=== PATIENT | female | born 1950 ===

== ENCOUNTER 2018-06-10 07:48 | Day surgery (SDC) | payer MEDICARE, BC ==
--- NOTE | 2018-06-06 15:18 | Pre-Procedure Note/Attestation ---
Pre-Procedure Note/Attestation Complete Prior to Procedure Planned Procedure: left Procedure Narrative: 1. CATARACT EXTRACTION WITH PHACO AND PC IOL IMPLANTATION, LEFT EYE. 2. LIMBAL RELAXING INCISION, LEFT EYE Indications for Procedure Pre-Operative Diagnosis: 1. CATARACT , LEFT EYE. 2. ASTIGMATISM, LEFT EYE. Attestation I attest that I discussed the nature of the procedure; its benefits; risks and complications; and alternatives (and the risks and benefits of such alternatives ), prior to the procedure, with the patient (or the patient's legal patient relations representative). I attest that, if there was a reasonable possibility of needing a blood transfusion, the patient (or the patient's legal patient relations representative) was given the [place] Department of Health Services standardized written summary, pursuant to the Jg Amrita Blood Safety Act ([place] Health and Safety Code # 1645, as amended). I attest that I re-evaluated the patient just prior to the surgery and that there has been no change in the patient's H&P, except as documented below: Bello Sheppard MD Jun 06, 2018 15:18
[~2018-06-10] VITALS: Ht 152.4 cm; Wt 53.5 kg
[2018-06-10] VITALS (9 sets, daily range): BP systolic 102–117; BP diastolic 63–77
[~2018-06-10 07:48] MED LIST: BSS 15ml BTL ONE; BSS 500ml btl ONE; Dexamethasone 4mg/ml vial ONE; EPINEPHrine 1mg/1ml Amp ONE; Lidocaine 1% MPF 10mg/ml 5ml ONE; Povidone-Iodine 5% opth solution ONE; Sodium Hyaluronate 10 mg/ml 0.85ml ONE; Tetracaine 0.5% Opth 4ml Soln ONE; acetaZOLAMIDE 125mg tab ORAL ONE
[2018-06-10] MEDS ORDERED: Akten 3.5% 1ml Btl ONE (08:22)
[2018-06-10] MEDS ORDERED: Vigamox Opth Soln 3ml ONE (08:23)
[2018-06-10] MEDS ORDERED: Tropicamide 1% Opth 15ml Soln ONE (08:23)
[2018-06-10] MEDS ORDERED: Diclofenac Sod 0.1% Op Soln ONE (08:23)
[2018-06-10 08:31] LABS: BASOPHILS % (AUTO) 0.7 % (0.0-2.0); EOSINOPHILS % (AUTO) 10.8 % (0.0-3.0); HEMATOCRIT 37.8 % (37.0-47.0); HEMOGLOBIN 12.4 G/DL (12.0-16.0); LYMPHOCYTES % (AUTO) 29.2 % (20.0-45.0); MEAN CORPUSCULAR VOLUME 88 FL (80-99); MONOCYTES % (AUTO) 7.7 % (1.0-10.0); NEUTROPHILS % (AUTO) 51.7 % (45.0-75.0); PLATELET COUNT 193 K/UL (150-450); WHITE BLOOD COUNT 5.4 K/UL (4.8-10.8)
[2018-06-10] MEDS: Tropicamide 1% Opth 15ml Soln LEFT EYE SCH ×3 (08:34→08:46)
[2018-06-10] MEDS: Vigamox Opth Soln 3ml LEFT EYE SCH ×3 (08:34→08:46)
[2018-06-10] MEDS: Diclofenac Sod 0.1% Op Soln LEFT EYE SCH ×3 (08:34→08:47)
[2018-06-10] MEDS ORDERED: Phenylephrine 10% Opth Soln 5ml ONE (08:34)
[2018-06-10] MEDS: Phenylephrine 10% Opth Soln 5ml LEFT EYE SCH ×3 (08:34→08:47)
[2018-06-10] MEDS: Akten 3.5% 1ml Btl LEFT EYE SCH ×3 (08:35→08:47)
[2018-06-10 08:43] LABS: ANION GAP 7 mmol/L (5-15); BLOOD UREA NITROGEN 8 mg/dL (7-18); CALCIUM 8.5 MG/DL (8.5-10.1); CARBON DIOXIDE 25 MMOL/L (21-32); CHLORIDE 108 MMOL/L (98-107); CREATININE 0.7 MG/DL (0.55-1.30); SODIUM 140 MMOL/L (136-145)
[2018-06-10] MEDS ORDERED: SYNTHROID100 MCG ORAL (08:52)
[2018-06-10] MEDS ORDERED: FISH OIL CAP1000 MG ORAL (08:54)
[2018-06-10] MEDS ORDERED: Vit D PO (08:54)
[2018-06-10] MEDS ORDERED: VIT A PO (08:56)
--- NOTE | 2018-06-10 09:17 | Anethesia Preoperative Eval ---
Anesthesia Pre-op PMH/ROS General Date of Evaluation: Jun 10, 2018 Time of Evaluation: 09:27 Anesthesiologist: ASA Score: ASA 2 Mallampati Score Class I : Soft palate, uvula, fauces, pillars visible Class II: Soft palate, uvula, fauces visible Class III: Soft palate, base of uvula visible Class IV: Only hard plate visible Mallampati Classification: Class II Surgeon: jes Diagnosis: left eye cataract Surgical Procedure: left eye cataract extraction w/iol implant Anesthesia History: none Family History: no anesthesia problems Allergies: Coded Allergies: No Known Allergies (Unverified , 06/06/18) Past Medical History Cardiovascular: Denies: HTN, CAD, RI, valve dz, arrhythmia, other Pulmonary: Denies: asthma, COPD, [place], other Gastrointestinal/Genitourinary: Reports: GERD; Denies: CRI, ESRD, other Neurologic/Psychiatric: Denies: dementia, CVA, depression/anxiety, TIA, other Endocrine: Reports: hypothyroidism; Denies: DM, steroids, other HEENT: Reports: cataract (L); Denies: cataract (R), glaucoma, [place] (L), [place] (R), other Hematology/Immune: Denies: anemia, DVT, bleeding disorder, other Musculoskeletal/Integumentary: Denies: OA, RA, DJD, DDD, edema, other PSxH Narrative: thyroid Anesthesia Pre-op Phys. Exam Physician Exam Last Vital Signs Date Time Temp Pulse Resp B/P (MAP) Pulse Ox O2 Delivery O2 Flow Rate FiO2 06/10/18 08:45 Room Air 06/10/18 08:41 98.0 61 18 117/77 (90) 99 98.0 Constitutional: NAD Cardiovascular: RRR Respiratory: CTA Gastrointestinal: S/NT/ND Airway Exam Mallampati Score: Class II MO: full ROM: full Teeth: intact Dentures: no upper, no lower Anesthesia Pre-op A/P Labs Hematology Test 06/10/18 08:15 White Blood Count 5.4 K/UL (4.8-10.8) Red Blood Count 4.30 M/UL (4.20-5.40) Hemoglobin 12.4 G/DL (12.0-16.0) Hematocrit 37.8 % (37.0-47.0) Mean Corpuscular Volume 88 FL (80-99) Mean Corpuscular Hemoglobin 28.8 PG (27.0-31.0) Mean Corpuscular Hemoglobin Concent 32.8 G/DL (32.0-36.0) Red Cell Distribution Width 12.0 % (11.6-14.8) Platelet Count 193 K/UL (150-450) Mean Platelet Volume 6.9 FL (6.5-10.1) Neutrophils (%) (Auto) 51.7 % (45.0-75.0) Lymphocytes (%) (Auto) 29.2 % (20.0-45.0) Monocytes (%) (Auto) 7.7 % (1.0-10.0) Eosinophils (%) (Auto) 10.8 % (0.0-3.0) H Basophils (%) (Auto) 0.7 % (0.0-2.0) Chemistry Test 06/10/18 08:15 Sodium Level 140 MMOL/L (136-145) Potassium Level 4.0 MMOL/L (3.5-5.1) Chloride Level 108 MMOL/L (98-107) H Carbon Dioxide Level 25 MMOL/L (21-32) Anion Gap 7 mmol/L (5-15) Blood Urea Nitrogen 8 mg/dL (7-18) Creatinine 0.7 MG/DL (0.55-1.30) Estimat Glomerular Filtration Rate > 60 mL/min (>60) Glucose Level 102 MG/DL (74-106) Calcium Level 8.5 MG/DL (8.5-10.1) Risk Assessment & Plan Assessment: asa 2 Plan: MAC Status Change Before Surgery: No Pre-Antibiotics Drug: none Ilda Rosales M.D. Jun 10, 2018 09:17
[2018-06-10] MEDS ORDERED: Midazolam 2mg/2ml Inj ONE (09:22)
[2018-06-10] MEDS ORDERED: fentaNYL 100 mcg/2 mL IV ONE (09:23)
[2018-06-10] MEDS ORDERED: LR 1000ml ONE (09:30)
[2018-06-10] MEDS ORDERED: LR 1000ml 1,000 ML IVLG SCH (10:03)
--- NOTE | 2018-06-10 10:06 | Immediate Post-Op Evaluation ---
Immediate Post-Op Evalulation Immediate Post-Op Evalulation Procedure: left eye cataract extraction w/iol implant Date of Evaluation: Jun 10, 2018 Time of Evaluation: 10:21 IV Fluids: LR 100ml Blood Products: 0 Estimated Blood Loss: 0 Urinary Output: 0 Blood Pressure Systolic: 113 Blood Pressure Diastolic: 67 Pulse Rate: 63 Respiratory Rate: 12 O2 Sat by Pulse Oximetry: 99 Temperature (Fahrenheit): 98.0 Pain Score (1-10): 0 Nausea: No Vomiting: No Complications none Patient Status: awake, patent, none Hydration Status: adequate Drug: none Ilda Rosales M.D. Jun 10, 2018 10:06
[2018-06-10] MEDS ORDERED: fentaNYL 100 mcg/2 mL IV PRN (10:15)
[2018-06-10] MEDS ORDERED: Midazolam 2mg/2ml Inj IVP PRN (10:15)
[2018-06-10] MEDS ORDERED: DiphenhydrAMINE 50mg/ml Inj IVP PRN (10:15)
--- NOTE | 2018-06-10 10:26 | Discharge Summary ---
Discharge Summary Discharge Summary Discharge Summary DATE OF ADMISSION: 06/10/2018 DATE OF DISCHARGE: 06/10/2018 REASON FOR HOSPITALIZATION: 1- Cataract, left eye 2- Astigmatism, left eye SURGERY PERFORMED: 1- cataract extraction, left eye 2- LRI, left eye CONDITION IN THE HOSPITAL:The patient tolerated the surgery without complications. DISCHARGE CONDITION: The patient was stable at discharge. DISCHARGE MEDICATIONS: 1. Vigamox eye drops one drop q.i.d, OS 2. Prednisolone one drop q.i.d, OS 3. Prolensa 1 drop qd, OS POSTOPERATIVE ORDERS: The patient has to rest at home. No bending, No lifting, No watching Television tonight. POSTOPERATIVE FOLLOW UP: The patient will be followed in my office tomorrow morning at 7 o'clock. Bello Sheppard MD Jun 10, 2018 10:26
[2018-06-10] MEDS ORDERED: Sodium Hyaluronate 10 mg/ml 0.85ml ONE (10:28)
--- NOTE | 2018-06-10 10:29 | Brief Operative Note ---
Immediate Post Operative Note Operative Note Chief Complaint: Blurry vision, difficulty driving and reading, left eye Pre-op Diagnosis: 1. CATARACT , LEFT EYE. 2. ASTIGMATISM, LEFT EYE. Procedure: 1- Cataract extraction with phaco and PC IOL implantation, left eye 2- Limbal relaxing incision LRI ), left eye Post-op Diagnosis: same as pre-op Surgeon: Bello andre MD [employer] Instructor: None Additional Surgeons: None Anesthesiologist: Petty Carley Anesthesia: MAC Specimen: none Complications: none Condition: stable Fluids: 500ml Estimated Blood Loss: none Drains: none Implant(s) used?: Yes - Monofocal PC IOl implanted in the left eye without complication Bello Andre MD Jun 10, 2018 10:29
[2018-06-10] MEDS ORDERED: acetaZOLAMIDE 125mg tab ONE (10:50)
--- NOTE | 2018-06-10 12:15 | Pre-op HX & Phy Repo 2 SIG ---
DATE OF ADMISSION: 06/10/2018 PRESURGICAL INTERNAL MEDICINE HISTORY AND PHYSICAL DATE OF EVALUATION: 06/10/2018. REASON FOR EVALUATION: I was asked by Dr. Bello Sheppard to see this 67-year-old female, who is going for elective surgery on the left eye. The patient has a cataract, left eye. Please see full Ophthalmology History and Physical by Dr. Bello Sheppard. The patient was evaluated. Chart was reviewed. PAST MEDICAL HISTORY AND REVIEW OF SYSTEMS: Remarkable for hypothyroidism and GERD. No history of stroke. No hypertension. Denies history of diabetes. No ID or chest pain. Denies respiratory problem, asthma or bronchitis. Denies renal failure. PAST SURGICAL HISTORY: Thyroidectomy two years ago for tumor. FAMILY HISTORY: Mother with history of dialysis and renal failure. Father has stroke. ALLERGIES: Not known. PRESENT MEDICATIONS: Include levothyroxine 0.1 mg, vitamin E, A, fish oil, and omeprazole p.r.n. SOCIAL HISTORY: The patient smoked in the past, more than 15 years ago. Denies alcohol or street drug use. PHYSICAL EXAMINATION: GENERAL: Alert, well-developed, well-nourished female, in her 60s. VITAL SIGNS: Weight 111 pounds, blood pressure 117/77, temperature 98, pulse 61, respirations 18, and O2 saturation 99% on room air. SKIN: Dry and warm. No rashes. No ulcers. HEENT: Head, normocephalic, atraumatic. Ears, clear. Eyes, full description per Dr. Bello Sheppard. Mouth, clear and moist. NECK: Supple. Anterior wall scar. No palpable mass. LYMPHATICS: Lymph nodes not enlarged. CHEST: No deformity or asymmetry. LUNGS: Clear to auscultation and percussion. No rales or rhonchi. HEART: Sinus rhythm. No ectopy. No murmur. No S3 or S4. ABDOMEN: Soft, benign. Liver and spleen not enlarged. No rebound. EXTREMITIES: No edema. No varicose vein. No calf tenderness. GENITOURINARY TRACT: Denies dysuria. No CVA tenderness. NERVOUS SYSTEM: No tremor. No nystagmus. DIAGNOSTIC AND LABORATORY DATA: ECG, normal sinus rhythm, normal ECG. The patient did not eat or drink from last night. Lab work pending. IMPRESSION: 1. Cataract, left eye. 2. Hypothyroidism. 3. GERD. PLAN: Cataract extraction, left eye with intraocular lens implant per Dr. Bello Sheppard. CONCLUSION: The patient's vital signs stable. The patient did not eat or drink from last night. The patient's ECG showed normal sinus rhythm, normal ECG. Laboratory work pending. The patient's condition optimized for surgery. Thank you very much, Dr. Sheppard, for privilege to participate in presurgical care of this interesting patient. Lizz Kearns M.D. DR: ANGELA JOB#: [id number] CC:
--- NOTE | 2018-06-10 22:15 | Operative Note - Dictated ---
DATE OF OPERATION: 06/10/2018 FACILITY: [facility] [place]. SURGEON: Bello Sheppard M.D. BACK TENDER INSULATION BOARD: None. ANESTHESIOLOGIST: Dr. Rosales. ANESTHESIA: Monitored anesthesia care (MAC). PREOPERATIVE DIAGNOSES: 1. Cataract, left eye. 2. Astigmatism, left eye. POSTOPERATIVE DIAGNOSES: 1. Cataract, left eye. 2. Astigmatism, left eye. SURGERY PERFORMED: 1. Cataract extraction with phacoemulsification and posterior chamber intraocular lens implantation, left eye. 2. Limbal-relaxing incision (LRI), left eye. INDICATION FOR SURGERY: The patient is a 67-year-old lady with history of age-related macular degeneration in both eyes, hypercholesterolemia, and hyperlipidemia. She is taking medications including levothyroxine for hypothyroidism, simvastatin for hyperlipidemia, and Diovan for hypertension. She is not allergic to any medications. She is not drinker. She is not a smoker. She is complaining of blurred vision in the left eye. On examination of the left eye, the cornea is clear. The anterior chamber is clean and quiet. Pupillary reflexes normal. There is no RAPD. There is 4+ nuclear sclerosis and 2+ cortical cataract in the left eye. On examination of the fundus, there is age-related macular degeneration, but optic disc and peripheral retina are within normal limits. To improve her vision in the left eye, the cataract has to be removed and posterior chamber intraocular lens has to be implanted. INFORMED CONSENT: The nature of the surgery, risks, benefits, alternatives, and potential complications were explained all in detail to the patient. The potential complications including but not limited to bleeding, infection, posterior capsular rupture, lens subluxation, flat anterior chamber, iris prolapse, uveitis, corneal edema, macular edema, endophthalmitis, retinal detachment, loss of vision, and even loss of the eye were all explained in detail to the patient. The patient voiced understanding and accepted all the complications. The alternatives including accommodating lens, multifocal lens, toric lens, and conventional cataract surgery with limbal-relaxing incision (LRI) for treatment of astigmatism were all explained in detail to the patient who voiced understanding. The patient elected to have conventional cataract surgery with limbal-relaxing incision for treatment of astigmatism. Then, she signed the consent form which is in the chart. DESCRIPTION OF SURGERY AND FINDINGS: Following that, the patient was taken to the operating room in stable condition. Lidocaine gel, Akten 3.5% were applied to the conjunctiva of the left eye. IV sedation was given by the anesthesiologist, Dr. Rosales. After adequate anesthesia and sedation had been achieved, the left eye was prepped and draped in sterile fashion for intraocular surgery. Following that, a speculum was placed in the left eye. Before the patient was taken to the operation room, the cornea was marked at 180 and 90 meridian. In the operation room, using a corneal marking pen, the steep meridian of the cornea was marked. Following that, using a yao knife with 600 micron blade, two parallel incisions were placed on the steep meridian of the cornea to treat the astigmatism. Following that, using a Super Sharp knife, a clear corneal side port was created. A 1% lidocaine without preservatives (MPF) was injected into the anterior chamber. Viscoelastic agent was injected into the anterior chamber. Following that, clear corneal temporal keratotomy was performed with a 2.8 mm keratome. Following that, viscoelastic agent was injected into the anterior chamber again. Following that, Vision Blue was injected under the viscoelastic agent to stain the anterior capsule. Following that, clear fresh viscoelastic agent, Healon, was injected into the anterior chamber again. Under the viscoelastic agent, an anterior capsulotomy was performed in the fashion of capsulorrhexis beautifully. Following that, the viscoelastic agent was removed from the anterior chamber. Following that, using balanced salt solution, hydrodissection and hydrodelineation was performed and the nucleus was freed. Following that, viscoelastic agent was injected into the anterior chamber again to protect the endothelium of the cornea. Following that, using phacoemulsification machine in the fashion of horizontal chop, the nucleus was removed in toto. Following that, the cortical material was removed from the capsular bag using irrigation-aspiration unit. Following that, the capsular bag was polished. Following that, the capsular bag was filled with viscoelastic agent, Healon. Following that, +24.5 diopter foldable IOL with serial number [id number] was injected into the capsular bag. Using a Sinskey hook, the lens was manipulated and put in proper position. Following that, viscoelastic agent was removed from the anterior and posterior part of the lens and the anterior chamber was filled with balanced salt solution. Following that, the wound was hydrated with balanced salt solution. Following that, the wound was checked for leakage and there was no leakage. Vigamox eyedrops were applied to the conjunctiva of the left eye. The patient tolerated the surgery without complications. At the end of the surgery, the eye was patched with clear sterile fenestrated shield. Following that, the patient was transferred to the recovery room. In the recovery room, 125 mg Diamox was given by mouth stat. Postoperative orders and directions were given to the patient. The patient will be discharged home upon stabilization. The patient will be followed in my office tomorrow morning. Bello Sheppard M.D. DR: Donovan JOB#: [id number] CC:
--- NOTE | 2018-06-12 17:41 | Cardiology Report ---
APPROVED REPORT EKG Measurement Heart [id number] ND [id number] Normal sinus rhythm Electrical artifact. Normal ECG
== END 2018-06-10 11:35 | disposition home or self-care (01) ==
LOC: SUR 07:48
DX: H25.812 Combined forms of age-related cataract, left eye (principal); H52.202 Unspecified astigmatism, left eye; H35.3130 Nonexudative age-related macular degeneration, bilateral, stage unspecified; E89.0 Postprocedural hypothyroidism; K21.9 Gastro-esophageal reflux disease without esophagitis; E78.00 Pure hypercholesterolemia, unspecified; E78.5 Hyperlipidemia, unspecified; Z87.891 Personal history of nicotine dependence
CPT/HCPCS: 36415; 66984; 66999; 80048; 85025; 93005; J0171; J1100; J2250; J3010; J7120; V2632; 94003; 94150

== ENCOUNTER 2018-06-24 06:44 | Day surgery (SDC) | payer MEDICARE, BC ==
--- NOTE | 2018-06-20 15:20 | Pre-Procedure Note/Attestation ---
Pre-Procedure Note/Attestation Complete Prior to Procedure Planned Procedure: right Procedure Narrative: 1. CATARACT EXTRACTION WITH PHACO AND PC IOL IMPLANTATION, RIGHT EYE. 2. LIMBAL RELAXING INCISION, RIGHT EYE Indications for Procedure Pre-Operative Diagnosis: 1. CATARACT , RIGHT EYE. 2. ASTIGMATISM, RIGHT EYE. Attestation I attest that I discussed the nature of the procedure; its benefits; risks and complications; and alternatives (and the risks and benefits of such alternatives ), prior to the procedure, with the patient (or the patient's legal rental representative). I attest that, if there was a reasonable possibility of needing a blood transfusion, the patient (or the patient's legal rental representative) was given the [place] Department of Health Services standardized written summary, pursuant to the Jg Amrita Blood Safety Act ([place] Health and Safety Code # 1645, as amended). I attest that I re-evaluated the patient just prior to the surgery and that there has been no change in the patient's H&P, except as documented below: Bello Sheppard MD Jun 20, 2018 15:20
[~2018-06-24] VITALS: Ht 152.4 cm; Wt 53.5 kg
[2018-06-24] VITALS (9 sets, daily range): BP systolic 110–127; BP diastolic 61–82
[~2018-06-24 06:44] MED LIST changes: -BSS 15ml BTL ONE; -BSS 500ml btl ONE; -Dexamethasone 4mg/ml vial ONE; -EPINEPHrine 1mg/1ml Amp ONE; +FISH OIL CAP1000 MG ORAL; -Lidocaine 1% MPF 10mg/ml 5ml ONE; -Povidone-Iodine 5% opth solution ONE; +SYNTHROID100 MCG ORAL; -Sodium Hyaluronate 10 mg/ml 0.85ml ONE; -Tetracaine 0.5% Opth 4ml Soln ONE; +VIT A PO; +Vit D PO
[2018-06-24] MEDS ORDERED: BSS 15ml BTL ONE (07:04)
[2018-06-24] MEDS ORDERED: BSS 500ml btl ONE (07:04)
[2018-06-24] MEDS ORDERED: Povidone-Iodine 5% opth solution ONE (07:04)
[2018-06-24] MEDS ORDERED: Carbachol 0.01% Op Soln 1.5ml vial ONE (07:04)
[2018-06-24] MEDS ORDERED: EPINEPHrine 1mg/1ml Amp ONE (07:04)
[2018-06-24] MEDS ORDERED: Lidocaine 1% MPF 10mg/ml 5ml ONE ×2 (07:04→07:44)
[2018-06-24] MEDS ORDERED: Sodium Hyaluronate 10 mg/ml 0.85ml ONE (07:05)
[2018-06-24] MEDS ORDERED: Tetracaine 0.5% Opth 4ml Soln ONE (07:05)
[2018-06-24] MEDS ORDERED: Dexamethasone 4mg/ml vial ONE (07:10)
[2018-06-24] MEDS: Phenylephrine 10% Opth Soln 5ml RIGHT EYE SCH ×3 (07:11→07:27)
[2018-06-24] MEDS: Akten 3.5% 1ml Btl RIGHT EYE SCH ×3 (07:11→07:27)
[2018-06-24] MEDS: Tropicamide 1% Opth 15ml Soln RIGHT EYE SCH ×3 (07:11→07:27)
[2018-06-24] MEDS: Vigamox Opth Soln 3ml RIGHT EYE SCH ×3 (07:11→07:27)
[2018-06-24] MEDS: Diclofenac Sod 0.1% Op Soln RIGHT EYE SCH ×3 (07:11→07:27)
[2018-06-24] MEDS ORDERED: Midazolam 2mg/2ml Inj ONE (07:44)
[2018-06-24] MEDS ORDERED: fentaNYL 100 mcg/2 mL IV ONE (07:44)
[2018-06-24] MEDS ORDERED: DiphenhydrAMINE 50mg/ml Inj ONE (07:45)
[2018-06-24] MEDS ORDERED: LR 1000ml 1,000 ML IVLG SCH (07:58)
--- NOTE | 2018-06-24 07:58 | Anethesia Preoperative Eval ---
Anesthesia Pre-op PMH/ROS General Date of Evaluation: Jun 24, 2018 Anesthesiologist: Sam ASA Score: ASA 2 Mallampati Score Class I : Soft palate, uvula, fauces, pillars visible Class II: Soft palate, uvula, fauces visible Class III: Soft palate, base of uvula visible Class IV: Only hard plate visible Mallampati Classification: Class II Surgeon: Maliha Diagnosis: Right cataract Surgical Procedure: Right cataract extraction with IOL Anesthesia History: none Family History: no anesthesia problems Allergies: Coded Allergies: No Known Allergies (Unverified , 06/24/18) Medications: see eMAR Past Medical History Cardiovascular: Denies: HTN, CAD, ND, valve dz, arrhythmia, other Pulmonary: Denies: asthma, COPD, [place], other Gastrointestinal/Genitourinary: Reports: GERD; Denies: CRI, ESRD, other Neurologic/Psychiatric: Denies: dementia, CVA, depression/anxiety, TIA, other Endocrine: Reports: hypothyroidism; Denies: DM, steroids, other HEENT: Denies: cataract (L), cataract (R), glaucoma, [place] (L), [place] (R), other Hematology/Immune: Denies: anemia, DVT, bleeding disorder, other Musculoskeletal/Integumentary: Reports: OA; Denies: RA, DJD, DDD, edema, other PSxH Narrative: thyroidectomy, left cataract Anesthesia Pre-op Phys. Exam Physician Exam Last Vital Signs Date Time Temp Pulse Resp B/P (MAP) Pulse Ox O2 Delivery O2 Flow Rate FiO2 06/24/18 07:14 Room Air 06/24/18 07:10 97.7 58 18 117/63 (81) 98 97.7 Constitutional: NAD Cardiovascular: RRR Respiratory: CTA Airway Exam Mallampati Score: Class II MO: full ROM: full Anesthesia Pre-op A/P Labs see chart Studies Pre-op Studies: EKG - sr Risk Assessment & Plan Assessment: ASA II Plan: MAC Status Change Before Surgery: No Pre-Antibiotics Drug: N/A Betty Mcdonough MD Jun 24, 2018 07:58
[2018-06-24] MEDS ORDERED: DiphenhydrAMINE 50mg/ml Inj IVP PRN (08:00)
[2018-06-24] MEDS ORDERED: LR 1000ml ONE (08:00)
[2018-06-24] MEDS ORDERED: Labetalol 5mg/ml 20ml vial IV PRN (08:00)
[2018-06-24] MEDS ORDERED: NS Irrig 1000ml ONE (08:00)
[2018-06-24] MEDS ORDERED: Sterile Water Irrig 1000ml IRRIG ONE (08:00)
--- NOTE | 2018-06-24 09:11 | Discharge Summary ---
Discharge Summary Discharge Summary Discharge Summary DATE OF ADMISSION: 06/24/2018 DATE OF DISCHARGE: 06/24/2017 REASON FOR HOSPITALIZATION: Cataract, right eye SURGERY PERFORMED: 1-n cataract extraction with phaco and PC IOL implantation, right eye 2- LRI CONDITION IN THE HOSPITAL:The patient tolerated the surgery without complications. DISCHARGE CONDITION: The patient was stable at discharge. DISCHARGE MEDICATIONS: 1. Vigamox eye drops one drop q.i.d, OD 2. Prednisolone one drop q.i.d, OD 3. Prolenza 1drop QD, OD POSTOPERATIVE ORDERS: The patient has to rest at home. No bending, No lifting, No watching Television tonight. POSTOPERATIVE FOLLOW UP: The patient will be followed in my office tomorrow morning at 7 o'clock. Bello Sheppard MD Jun 24, 2018 09:11
--- NOTE | 2018-06-24 09:14 | Brief Operative Note ---
Immediate Post Operative Note Operative Note Chief Complaint: Blurry vision, difficulty driving and reading, right eye Pre-op Diagnosis: 1. CATARACT , RIGHT EYE. 2. ASTIGMATISM, RIGHT EYE. Procedure: 1- Cataract extraction with phaco and PC IOL implantation, right eye 2- Limbal relaxin incision ( LRI ), right eye Post-op Diagnosis: same as pre-op Surgeon: Bello andre MD Book Reviewer: None Additional Surgeons: None Anesthesiologist: Dr. Vargas Anesthesia: MAC Specimen: none Complications: none Condition: stable Fluids: 500ml Estimated Blood Loss: none Drains: none Implant(s) used?: Yes - Monofocal PC IOL implanted in the right eye without complication Bello Andre MD Jun 24, 2018 09:14
[2018-06-24] MEDS ORDERED: acetaZOLAMIDE 125mg tab ONE (09:15)
--- NOTE | 2018-06-24 09:16 | Immediate Post-Op Evaluation ---
Immediate Post-Op Evalulation Immediate Post-Op Evalulation Procedure: Right cataract extraction with IOL Date of Evaluation: Jun 24, 2018 Time of Evaluation: 09:16 IV Fluids: 300 Blood Products: 0 Estimated Blood Loss: 0 Urinary Output: 0 Blood Pressure Systolic: 121 Blood Pressure Diastolic: 70 Pulse Rate: 67 Respiratory Rate: 13 O2 Sat by Pulse Oximetry: 98 Temperature (Fahrenheit): 97.5 Pain Score (1-10): 0 Nausea: No Vomiting: No Complications 0 Patient Status: awake, reacts, patent, none Hydration Status: adequate Drug: N/A Betty Mcdonough MD Jun 24, 2018 09:16
--- NOTE | 2018-06-24 09:17 | 48 Hour Post Anesthesia Eval ---
Post Anesthesia Evaluation Procedure: Right cataract extraction with IOL Date of Evaluation: Jun 24, 2018 Airway: patent Nausea: No Vomiting: No Pain Intensity: 0 Hydration Status: adequate Cardiopulmonary Status: at baseline Mental Status/LOC: patient returned to baseline Post-Anesthesia Complications: 0 Follow-up care needed: ready to discharge Betty Mcdonough MD Jun 24, 2018 09:17
--- NOTE | 2018-06-24 13:58 | Cardiology Report ---
APPROVED REPORT EKG Measurement Heart [id number] NC 180P36 [id number] Sinus bradycardia Otherwise normal ECG
--- NOTE | 2018-06-24 16:45 | Operative Note - Dictated ---
DATE OF OPERATION: 06/24/2018 FACILITY: [facility]. SURGEON: Bello Sheppard M.D. CLOTH DOFFER: None. ANESTHESIOLOGIST: Dr. Vargas. ANESTHESIA: Monitored anesthesia care (MAC). PREOPERATIVE DIAGNOSES: 1. Cataract, right eye. 2. Astigmatism, right eye. POSTOPERATIVE DIAGNOSES: 1. Cataract, right eye. 2. Astigmatism, right eye. SURGERY PERFORMED: 1. Cataract extraction with phacoemulsification and posterior chamber intraocular lens implantation in the right eye. 2. Limbal relaxing incision (LRI) in the right eye. INDICATION FOR SURGERY: The patient is a 67-year-old lady with history of hypothyroidism due to thyroid surgery. She is taking Synthroid for hypothyroidism. Otherwise, she is healthy. She is not allergic to any medication. She is not a drinker. She is not a smoker. She has had cataract surgery in the left eye three weeks ago and she is happy with the results very much. Now, she is complaining of blurred vision in the right eye. On examination of the right eye, the cornea is clear. Anterior chamber is clear and quiet. Pupillary reflexes normal. There is no RAPD. There is 4+ nuclear sclerosis and 2 + cortical cataract. Funduscopy shows macular degeneration, but optic disc and periphery retina are within normal limits. To improve her vision in the right eye, the cataract has to be removed and intraocular lens has to be implanted. But astigmatism has to be addressed as well. INFORMED CONSENT: The nature of the surgery, risks, benefits, alternatives, and potential complications were all explained in detail to the patient. The potential complications including but not limited to bleeding, infection, posterior capsular rupture, lens subluxation, flat anterior chamber, iris prolapse, uveitis, corneal edema, macular edema, endophthalmitis, retinal detachment, loss of vision, and even loss of the eye were all explained in detail to the patient. The patient voiced understanding and accepted all the complications. The alternatives including accommodating lens, multifocal lens, toric lens, and conventional cataract surgery with limbal-relaxing incision (LRI) for treatment of astigmatism were all explained to the patient. She voiced understanding and accepted all the complications. She elected to have conventional cataract surgery with limbal relaxing incision for treatment of astigmatism in the right eye. Then, she signed a consent form, which is in the chart. DESCRIPTION OF SURGERY AND FINDINGS: Following that, the patient was taken to the operation room in a stable condition. Lidocaine gel Akten 3.5% were applied to the conjunctiva of the right eye. IV sedation was given by the anesthesiologist, Dr. Vargas. After adequate anesthesia and sedation had been achieved, the right eye was prepped and draped in a sterile fashion for intraocular surgery. Following that, a speculum was placed in the right eye. Before the patient was taken to the operating room, the cornea was marked at 180 and 90 meridian. In the operating room, using a corneal marker and marking pen, the meridian of the cornea was marked. Following that, using a yao knife with 600 blade, two parallel incisions was placed in the steep meridian of the cornea to treat the astigmatism. Following that, using a Super Sharp knife, a clear corneal side port was created. Following that, 1% Lidocaine without preservative (MPF) was injected into the anterior chamber. Viscoelastic agent Healon was injected into the anterior chamber. Following that, using a 2.8 mm keratome, a clear corneal temporal keratotomy was performed. Following that, VisionBlue was injected under the viscoelastic agent to stain the anterior capsule of the crystalline lens. Following that, clear fresh viscoelastic agent was injected into the anterior chamber again. Under the viscoelastic agent, an anterior capsulotomy was performed in the fashion of capsulorrhexis beautifully. Following that, whole viscoelastic agent was removed from the anterior chamber. Following that, using a balanced salt solution, hydrodissection and hydrodelineation was performed and the nucleus was freed. Following that, a clear fresh viscoelastic agent was injected into the anterior chamber to protect the endothelium of the cornea. Following that, using the phacoemulsification machine in the fashion of horizontal chop, the nucleus was removed in toto. Following that, using the irrigation aspiration unit, cortical material was removed from the capsular bag and the capsular bag was polished. Following that, the capsular bag was filled with clear fresh viscoelastic agent. Following that, a +25.0 diopter PCB00 foldable IOL with serial number [id number] was inserted into the capsular bag. Using a Sinskey hook, the lens was manipulated within the proper position. Following that, the viscoelastic agent was removed from the anterior posterior part of the lens. Following that, anterior chamber was filled with balanced salt solution and the wound was hydrated with balanced salt solution. The wound was checked for leakage and there was no leakage. Vigamox eye drops were applied to the conjunctiva of the right eye. The patient tolerated the surgery without complications. At the end of the surgery, the eye was patched with a clear sterile fenestrated shield. Following that, the patient was transferred to the recovery room. In the recovery room, a 125 mg Diamox was given by mouth stat. Postoperative orders and directions were given to the patient. The patient will be discharged home upon stabilization. The patient will be followed in my office tomorrow morning. Bello Sheppard M.D. DR: BROWN JOB#: [id number] CC:
== END 2018-06-24 10:45 | disposition home or self-care (01) ==
LOC: SUR 06:44
DX: H25.811 Combined forms of age-related cataract, right eye (principal); H52.201 Unspecified astigmatism, right eye; K21.9 Gastro-esophageal reflux disease without esophagitis; R00.1 Bradycardia, unspecified; E03.9 Hypothyroidism, unspecified; M19.90 Unspecified osteoarthritis, unspecified site
CPT/HCPCS: 66984; 66999; 93005; J0171; J1100; J1200; J2250; J3010; J7120; V2632; 94003; 94150